=== PATIENT | male | born 1995 | race Caucasian/White ===

== ENCOUNTER 2021-02-05 22:32 | Emergency (ER) | payer OTHER ==
[2021-02-06 01:16] LABS: BASOPHIL 0.4 % (0-2); EOSINOPHIL 0.7 % (0-5); HCT 44.3 % (42.0-52.0); HGB 14.6 g/dl (13.2-18.0); MCH 28.9 pg (25.0-31.0); MCV 87.7 fL (78.0-100.0); MPV 10.3 fL (6.0-9.5); NEUTROPHIL 71.5 % (41-80); NRBC 0; PLT 287 K/uL (150-400); RBC 5.05 M/uL (4.70-6.00); WBC 11.4 K/uL (4.0-10.5)
[2021-02-06 01:52] LABS: ALBUMIN 3.8 g/dL (3.4-5.0); BILIRUBIN - TOTAL 0.2 mg/dL (0.2-1.0); BUN/CREAT RATIO (CALC) 15.8 RATIO; CREATININE 0.95 mg/dL (0.67-1.17); GLOBULIN (CALCULATION) 3.4 g/dL; POTASSIUM 4.3 mmol/L (3.5-5.1); TOTAL PROTEIN 7.2 g/dL (6.4-8.2)
== END 2021-02-06 02:20 | disposition home or self-care (01) ==
LOC: FER 22:32
PROVIDERS: Emergency Medicine
DX: F41.9 Anxiety disorder, unspecified (principal); R07.89 Other chest pain; F17.290 Nicotine dependence, other tobacco product, uncomplicated
CPT/HCPCS: 36415; 71045; 80053; 84484; 85025; 93005